=== PATIENT | female | born 1935 | race Caucasian/White ===

== ENCOUNTER 2020-02-22 10:31 | Emergency (ER) | payer MEDICARE, OTHER ==
[2020-02-22] MEDS ORDERED: Sodium Chloride 0.9% 10 ML Syringe FLUSH PRN (10:45)
--- NOTE | 2020-02-22 10:51 | EDM.PDOC ---
ED HPI GENERAL MEDICAL PROBLEM - General Chief Complaint: Neuro Symptoms/Deficits Stated Complaint: TROUBLE WALKING Time Seen by Provider: 02/22/20 10:35 Source of Information: Reports: Patient, Family (daughter), RN, RN Notes Reviewed History Limitations: Reports: No Limitations - History of Present Illness INITIAL COMMENTS - FREE TEXT/NARRATIVE: Pt presents to ER from home in [place], [place] with c/o waking with left facial droop this morning. Last known well time was late last evening, family unsure of the time, but est. to have been 8 or 9PM. Pt reports she has not felt well for about 2 weeks due to low back and leg pains. She reports that both legs have felt very heavy to her during the last two weeks. She also c/o constipation. Pt has no personal stroke Hx. She has HTN, and Hx of lumbar surgery in 2017. Pt reports strong family history of stroke, including both parents. She denies headache, visual changes, nausea, vomiting, slurred speech, difficulty with speech/word finding, difficulty swallowing, or one sided motor weakness. Denies chest pain, palpitations, lightheadedness, syncope, cough, or fever. Denies head injury or falls. She take Aspirin 81mg daily. Family reports pt has had an acute change in memory and confusion this past week. Onset: Today, Unknown/Unsure (Woke with left face droop.) Onset Date: 02/22/20 Duration: Constant Location: Reports: Face Improves with: Reports: None Worsens with: Reports: None Associated Symptoms: Reports: No Other Symptoms - Related Data Allergies Allergy/AdvReac Type Severity Reaction Status Date / Time codeine Allergy Cannot Verified 02/22/20 10:43 Remember Sulfa (Sulfonamide Allergy Cannot Verified 02/22/20 10:43 Antibiotics) Remember Past Medical History Cardiovascular History: Reports: Hypertension Musculoskeletal History: Reports: Back Pain, Chronic - Past Surgical History Neurological Surgical History: Reports: Lumbar Spine Social & Family History - Family History Cardiac: Reports: Hypertension Neurological: Reports: CVA (both parents) - Living Situation & Occupation Living situation: Reports: , Alone Occupation: Retired ED ROS GENERAL - Review of Systems Review Of Systems: Comprehensive ROS is negative, except as noted in HPI. ED EXAM, NEURO - Physical Exam Exam: See Below Exam Limited By: No Limitations General Appearance: Alert, WD/WN, No Apparent Distress Eye Exam: Bilateral Eye: EOMI, Normal Inspection, PERRL Ears: Normal External Exam, Hearing Grossly Normal Nose: Normal Inspection, Normal Mucosa, No Blood Throat/Mouth: Normal Inspection, Normal Lips, Normal Teeth, Normal Gums, Normal Oropharynx, Normal Voice, No Airway Compromise Head Exam: Atraumatic, Normocephalic Neck: Normal Inspection, Supple, Non-Tender, Full Range of Motion Respiratory/Chest: No Respiratory Distress, Lungs Clear, Normal Breath Sounds, No Accessory Muscle Use, Chest Non-Tender Cardiovascular: Normal Peripheral Pulses, Regular Rate, Rhythm, No Edema, No JVD GI/Abdominal: Normal Bowel Sounds, Soft, Non-Tender, No Distention, No Abnormal Bruit, Pelvis Stable Neurological: Alert, Normal Dorsiflexion, Normal Plantar Flexion, No Motor/ Sensory Deficits (to B/L upper or lower extremities.), Oriented x 3, Other ( Left facial droop, CN otherwise intact. Clear speech. NIH score: 1 for left facial droop.) EKG INTERPRETATION EKG Date: 02/22/20 Rhythm: Other (SR) Rate (Beats/Min): 81 [place]: LAD-Left [place] Deviation P-Wave: Present QRS: Normal (early precordial transition, probable LVH) ST-T: Normal QT: Normal Comparison: NA - No Prior EKG Course - Vital Signs Last Recorded V/S: Last Vital Signs Temp 98.3 F 02/22/20 10:43 Pulse 86 02/22/20 10:43 Resp 18 02/22/20 10:43 BP 168/80 H 02/22/20 10:43 Pulse Ox 95 02/22/20 10:43 - Orders/Labs/Meds Orders: Active Orders 24 hr Category Date Time Status Blood Glucose Check, Bedside [RC] ONETIME Care 02/22/20 10:45 Active EKG 12 Lead [EKG Documentation Completion] [] STAT Care 02/22/20 10:45 Ordered NIH Stroke Scale [RC] ASDIRECTED Care 02/22/20 10:44 Active Peripheral IV Care [RC] . DIRECTED Care 02/22/20 10:45 Active CBC WITH AUTO DIFF [HEME] Stat Lab 02/22/20 10:45 Ordered COMPREHENSIVE METABOLIC PN,CMP [CHEM] Stat Lab 02/22/20 10:45 Ordered DRUG SCREEN URINE BIORAD [URCHEM] Stat Lab 02/22/20 10:45 Ordered INR,PT,PROTHROMBIN TIME [COAG] Stat Lab 02/22/20 10:45 Ordered PTT,PARTIAL THROMBOPLSTIN TIME [COAG] Stat Lab 02/22/20 10:45 Ordered TROPONIN I [CHEM] Stat Lab 02/22/20 10:45 Ordered UA RFX BARBI AND CULT IF INDIC [URIN] Stat Lab 02/22/20 10:45 Ordered Sodium Chloride 0.9% [Saline Flush] Med 02/22/20 10:45 Ordered 10 ml FLUSH ASDIRECTED PRN Peripheral IV Insertion Adult [OM.PC] Stat Oth 02/22/20 10:45 Ordered Medication Orders Sodium Chloride (Saline Flush) 10 ml FLUSH ASDIRECTED PRN PRN Reason: Keep Vein Open Meds: Medications Generic Name Dose Route Start Last Admin Trade Name Freq PRN Reason Stop Dose Admin Sodium Chloride 10 ml 02/22/20 10:45 Saline Flush FLUSH ASDIRECTED PRN Keep Vein Open - Radiology Interpretation Free Text/Narrative:: *CT scanner is down for repair for the day. Therefore early initiation of pt transfer to [facility] for stroke evaluation. Due to weather no airlift by rotor is available. Fixed wing aircraft in not in the vicinity, and we can have the pt to [place] in about the same amt. of time by ground transfer. Since her last known well time was yesterday evening, pt will be transferred by [facility] ground ambulance. Departure - Departure Time of Disposition: 10:49 Disposition: DC/Tfer to Acute Hospital 02 Condition: Undetermined Clinical Impression: Facial droop CVA (cerebral vascular accident) Qualifiers: CVA mechanism: unspecified Qualified Code(s): I63.9 - Cerebral infarction, unspecified - Discharge Information *PRESCRIPTION DRUG MONITORING PROGRAM REVIEWED*: Not Applicable *COPY OF PRESCRIPTION DRUG MONITORING REPORT IN PATIENT SACHI: Not Applicable Forms: ED Department Discharge, Interfacility Transfer TEN Sepsis Event Note (ED) - Focused Exam Vital Signs: Vital Signs Temp Pulse Resp BP Pulse Ox 02/22/20 10:43 98.3 F 86 18 168/80 H 95 - My Orders Last 24 Hours: My Active Orders 02/22/20 10:44 NIH Stroke Scale [RC] ASDIRECTED 02/22/20 10:45 Blood Glucose Check, Bedside [RC] ONETIME EKG 12 Lead [EKG Documentation Completion] [RC] STAT Peripheral IV Care [RC] . DIRECTED CBC WITH AUTO DIFF [HEME] Stat COMPREHENSIVE METABOLIC PN,CMP [CHEM] Stat DRUG SCREEN URINE BIORAD [URCHEM] Stat INR,PT,PROTHROMBIN TIME [COAG] Stat PTT,PARTIAL THROMBOPLSTIN TIME [COAG] Stat TROPONIN I [CHEM] Stat UA RFX BARBI AND CULT IF INDIC [URIN] Stat Sodium Chloride 0.9% [Saline Flush] 10 ml FLUSH ASDIRECTED PRN Peripheral IV Insertion Adult [OM.PC] Stat - Assessment/Plan Last 24 Hours: My Active Orders 02/22/20 10:44 NIH Stroke Scale [RC] ASDIRECTED 02/22/20 10:45 Blood Glucose Check, Bedside [RC] ONETIME EKG 12 Lead [EKG Documentation Completion] [RC] STAT Peripheral IV Care [RC] . DIRECTED CBC WITH AUTO DIFF [HEME] Stat COMPREHENSIVE METABOLIC PN,CMP [CHEM] Stat DRUG SCREEN URINE BIORAD [URCHEM] Stat INR,PT,PROTHROMBIN TIME [COAG] Stat PTT,PARTIAL THROMBOPLSTIN TIME [COAG] Stat TROPONIN I [CHEM] Stat UA RFX BARBI AND CULT IF INDIC [URIN] Stat Sodium Chloride 0.9% [Saline Flush] 10 ml FLUSH ASDIRECTED PRN Peripheral IV Insertion Adult [OM.PC] Stat
[2020-02-22 11:19] LABS: ANION GAP 12.7 mEq/L (7-13); CHLORIDE,CL 103 mmol/L (98-107); SODIUM,NA 141 mmol/L (136-145)
[2020-02-22 11:30] LABS: PTT,PARTIAL THROMBOPLSTIN TIME 20.7 SEC (22.0-34.0)
== END 2020-02-22 11:15 ==
LOC: DL.ED 10:31
DX: I63.9 Cerebral infarction, unspecified (principal); I10 Essential (primary) hypertension; Z88.5 Allergy status to narcotic agent; Z88.2 Allergy status to sulfonamides
CPT/HCPCS: 36415; 80053; 82962; 84484; 85025; 85610; 85730; 93005; 99285-25